=== PATIENT | male | born 1950 | race Caucasian/White ===

== ENCOUNTER 2023-02-15 09:00 | Inpatient (IN) | payer MEDICARE, BC ==
[~2023-02-15] VITALS: Ht 175.3 cm; Wt 102.5 kg
[2023-02-15 13:30] VITALS: BP 159/78
[2023-02-15] MEDS ORDERED: IBUPROFEN 400 MG TABLET PO PRN (14:00)
[2023-02-15] MEDS ORDERED: NICOTINE POLACRILEX 2 MG GUM CHEW PRN (14:00)
[2023-02-15] MEDS: PrednisoLONE ACETATE 1% 5 ML OPHTHALMIC SUSPENSION OS SCH ×2 (16:39→20:51)
[2023-02-15] MEDS ORDERED: PNEUMOCOCCAL VACCINE POLYVALENT 0.5 ML VIAL [PPSV23] IM. ONE (17:30)
[2023-02-15] MEDS: ATORVASTATIN CALCIUM 40 MG TABLET PO SCH (20:51)
[2023-02-15 21:00] VITALS: BP 143/71
[2023-02-16 06:28] LABS: BASOPHILS % (AUTO) 0.3 % (0.0-2.0); EOSINOPHILS % (AUTO) 2.3 % (1.0-6.0); HEMATOCRIT 42.8 % (41-53); HEMOGLOBIN 14.2 g/dL (13.5-17.5); LYMPHOCYTES # (AUTO) 2.1 K/uL (1.0-4.8); LYMPHOCYTES % (AUTO) 24.8 % (22.0-44.0); MEAN CORPUSCULAR HEMOGLOBIN 29.7 pg (26.0-34.0); MEAN CORPUSCULAR HGB CONC 33.1 G/dL (31.0-37.0); MEAN CORPUSCULAR VOLUME 90 fL (80-100); MONOCYTES # (AUTO) 0.7 K/uL (0.1-1.0); MONOCYTES % (AUTO) 8.3 % (2.0-9.0); NEUTROPHILS # (AUTO) 5.4 K/uL (1.8-7.7); NEUTROPHILS % (AUTO) 64.3 % (40.0-70.0); PLATELET COUNT (AUTO) 168 K/uL (150-450); RED BLOOD CELL COUNT(AUTO) 4.76 MIL/uL (4.50-5.90); RED CELL DISTRIBUTION WIDTH 13.5 % (11.5-14.5)
[2023-02-16 06:49] LABS: ANION GAP 4 mmol/L (8-16); CALCIUM, TOTAL 9.2 mg/dL (8.8-10.5); CARBON DIOXIDE 29 mmol/L (22-29); CHLORIDE 107 mmol/L (98-107); CREATININE 0.78 mg/dL (0.60-1.30); GLOMERULAR FILTR. RATE CALC > 60 mL/min (>60); GLUCOSE,RANDOM 90 mg/dL (70-110); POTASSIUM 4.6 mmol/L (3.5-5.1); SODIUM SERUM 140 mmol/L (136-145)
[2023-02-16 06:51] LABS: ALKALINE PHOSPHATASE 89 U/L (46-116); BILIRUBIN,TOTAL 0.4 mg/dL (0.1-1.0)
[2023-02-16 06:52] LABS: ALANINE AMINOTRANSFERASE 27 U/L (12-78); ALBUMIN 3.1 g/dL (3.4-5.0); ASPARTATE AMINOTRANSFERASE 19 U/L (15-37); TOTAL PROTEIN, SERUM 5.9 g/dL (6.4-8.2)
[2023-02-16 07:05] LABS: UREA NITROGEN, BLOOD 16 mg/dL (7-18)
[2023-02-16 08:15] VITALS: BP 159/74
[2023-02-16] MEDS: PrednisoLONE ACETATE 1% 5 ML OPHTHALMIC SUSPENSION OS SCH ×3 (08:18→22:03)
[2023-02-16] MEDS: ENOXAPARIN SODIUM 40 MG/0.4 ML PF SYRINGE SQ SCH (08:18)
[2023-02-16] MEDS: LOSARTAN POTASSIUM 50 MG TABLET PO SCH (08:18)
[2023-02-16] MEDS: ASPIRIN 81 MG CHEWABLE TABLET PO SCH (08:18)
[2023-02-16] MEDS: ETHYL ALCOHOL 62% ANTISEPTIC NASAL SANITIZER 0.6 ML AMPUL NASAL SCH ×2 (08:18→22:02)
[2023-02-16] MEDS: NICOTINE 21 MG/24 HOUR PATCH TD SCH (08:19)
[2023-02-16 21:00] VITALS: BP 161/79
[2023-02-16] MEDS: ATORVASTATIN CALCIUM 40 MG TABLET PO SCH (22:03)
[2023-02-17 08:10] VITALS: BP 162/80
[2023-02-17] MEDS: ETHYL ALCOHOL 62% ANTISEPTIC NASAL SANITIZER 0.6 ML AMPUL NASAL SCH ×2 (08:26→20:49)
[2023-02-17] MEDS: PrednisoLONE ACETATE 1% 5 ML OPHTHALMIC SUSPENSION OS SCH ×3 (08:27→20:50)
[2023-02-17] MEDS: ENOXAPARIN SODIUM 40 MG/0.4 ML PF SYRINGE SQ SCH (08:28)
[2023-02-17] MEDS: LOSARTAN POTASSIUM 50 MG TABLET PO SCH (08:28)
[2023-02-17] MEDS: ASPIRIN 81 MG CHEWABLE TABLET PO SCH (08:28)
[2023-02-17] MEDS: NICOTINE 21 MG/24 HOUR PATCH TD SCH (08:29)
[2023-02-17] MEDS ORDERED: PNEUMOCOCCAL VACCINE POLYVALENT 0.5 ML VIAL [PPSV23] IM. ONE (09:45)
[2023-02-17] MEDS: SENNOSIDES 8.6 MG TABLET PO SCH (20:50)
[2023-02-17] MEDS: DOCUSATE SODIUM 100 MG CAPSULE PO SCH (20:50)
[2023-02-17] MEDS: MELATONIN 3 MG TABLET PO PRN (20:50)
[2023-02-17] MEDS: ATORVASTATIN CALCIUM 40 MG TABLET PO SCH (20:51)
[2023-02-17 21:00] VITALS: BP 146/81
[2023-02-18 08:01] VITALS: BP 159/78
[2023-02-18] MEDS: ENOXAPARIN SODIUM 40 MG/0.4 ML PF SYRINGE SQ SCH (08:09)
[2023-02-18] MEDS: LOSARTAN POTASSIUM 50 MG TABLET PO SCH (08:09)
[2023-02-18] MEDS: PrednisoLONE ACETATE 1% 5 ML OPHTHALMIC SUSPENSION OS SCH ×3 (08:09→21:25)
[2023-02-18] MEDS: DOCUSATE SODIUM 100 MG CAPSULE PO SCH ×2 (08:09→21:25)
[2023-02-18] MEDS: ASPIRIN 81 MG CHEWABLE TABLET PO SCH (08:09)
[2023-02-18] MEDS: NICOTINE 21 MG/24 HOUR PATCH TD SCH (08:10)
[2023-02-18] MEDS: ETHYL ALCOHOL 62% ANTISEPTIC NASAL SANITIZER 0.6 ML AMPUL NASAL SCH ×2 (08:10→21:25)
[2023-02-18 12:20] VITALS: BP 145/79
[2023-02-18] MEDS: METOPROLOL TARTRATE 25 MG TABLET PO SCH ×2 (12:39→21:26)
[2023-02-18] MEDS: ATORVASTATIN CALCIUM 40 MG TABLET PO SCH (21:25)
[2023-02-18] MEDS: SENNOSIDES 8.6 MG TABLET PO SCH (21:26)
[2023-02-18] MEDS: MELATONIN 3 MG TABLET PO PRN (21:28)
[2023-02-18 21:35] VITALS: BP 148/75
[2023-02-19] MEDS ORDERED: ATOR40TA28 PO (04:27)
[2023-02-19] MEDS ORDERED: METO25 PO (04:27)
[2023-02-19] MEDS ORDERED: PREDAOS OS (04:27)
[2023-02-19] MEDS ORDERED: DOCU-385 PO (04:27)
[2023-02-19] MEDS ORDERED: NICO-803 TD (04:27)
[2023-02-19] MEDS ORDERED: SENN-187 PO (04:27)
[2023-02-19] MEDS ORDERED: LOSA-382 PO (04:27)
[2023-02-19] MEDS ORDERED: ASPI-1450 PO (04:27)
[2023-02-19 07:45] VITALS: BP 152/66
[2023-02-19] MEDS: ENOXAPARIN SODIUM 40 MG/0.4 ML PF SYRINGE SQ SCH (07:48)
[2023-02-19] MEDS: NICOTINE 21 MG/24 HOUR PATCH TD SCH (07:48)
[2023-02-19] MEDS: ETHYL ALCOHOL 62% ANTISEPTIC NASAL SANITIZER 0.6 ML AMPUL NASAL SCH ×2 (07:48→20:26)
[2023-02-19] MEDS: METOPROLOL TARTRATE 25 MG TABLET PO SCH ×2 (07:49→20:20)
[2023-02-19] MEDS: ASPIRIN 81 MG CHEWABLE TABLET PO SCH (07:49)
[2023-02-19] MEDS: LOSARTAN POTASSIUM 50 MG TABLET PO SCH (07:49)
[2023-02-19] MEDS: DOCUSATE SODIUM 100 MG CAPSULE PO SCH ×2 (07:49→20:20)
[2023-02-19] MEDS: PrednisoLONE ACETATE 1% 5 ML OPHTHALMIC SUSPENSION OS SCH ×3 (07:49→20:20)
[2023-02-19 13:15] VITALS: BP 149/79
[2023-02-19 20:15] VITALS: BP 137/71
[2023-02-19] MEDS: ATORVASTATIN CALCIUM 40 MG TABLET PO SCH (20:20)
[2023-02-19] MEDS: MELATONIN 3 MG TABLET PO PRN (20:20)
[2023-02-19] MEDS: SENNOSIDES 8.6 MG TABLET PO SCH (20:21)
[2023-02-20 08:05] VITALS: BP 149/77
[2023-02-20] MEDS: ASPIRIN 81 MG CHEWABLE TABLET PO SCH (08:48)
[2023-02-20] MEDS: DOCUSATE SODIUM 100 MG CAPSULE PO SCH ×2 (08:48→20:42)
[2023-02-20] MEDS: ETHYL ALCOHOL 62% ANTISEPTIC NASAL SANITIZER 0.6 ML AMPUL NASAL SCH ×2 (08:48→20:42)
[2023-02-20] MEDS: PrednisoLONE ACETATE 1% 5 ML OPHTHALMIC SUSPENSION OS SCH ×3 (08:48→20:42)
[2023-02-20] MEDS: NICOTINE 21 MG/24 HOUR PATCH TD SCH (08:49)
[2023-02-20] MEDS: LOSARTAN POTASSIUM 50 MG TABLET PO SCH (08:49)
[2023-02-20] MEDS: METOPROLOL TARTRATE 25 MG TABLET PO SCH ×2 (08:49→20:45)
[2023-02-20] MEDS: ENOXAPARIN SODIUM 40 MG/0.4 ML PF SYRINGE SQ SCH (08:49)
[2023-02-20] MEDS: SENNOSIDES 8.6 MG TABLET PO SCH (20:43)
[2023-02-20] MEDS: ATORVASTATIN CALCIUM 40 MG TABLET PO SCH (20:43)
[2023-02-20 21:00] VITALS: BP 138/71
[2023-02-21 08:00] VITALS: BP 147/80
[2023-02-21] MEDS: ETHYL ALCOHOL 62% ANTISEPTIC NASAL SANITIZER 0.6 ML AMPUL NASAL SCH ×2 (09:10→21:04)
[2023-02-21] MEDS: PrednisoLONE ACETATE 1% 5 ML OPHTHALMIC SUSPENSION OS SCH ×3 (09:11→21:05)
[2023-02-21] MEDS: METOPROLOL TARTRATE 25 MG TABLET PO SCH ×2 (09:12→21:06)
[2023-02-21] MEDS: DOCUSATE SODIUM 100 MG CAPSULE PO SCH ×2 (09:12→21:06)
[2023-02-21] MEDS: ASPIRIN 81 MG CHEWABLE TABLET PO SCH (09:12)
[2023-02-21] MEDS: ENOXAPARIN SODIUM 40 MG/0.4 ML PF SYRINGE SQ SCH (09:12)
[2023-02-21] MEDS: NICOTINE 21 MG/24 HOUR PATCH TD SCH (09:13)
[2023-02-21] MEDS: LOSARTAN POTASSIUM 50 MG TABLET PO SCH (09:22)
[2023-02-21 20:57] VITALS: BP 133/70
[2023-02-21] MEDS: ATORVASTATIN CALCIUM 40 MG TABLET PO SCH (21:06)
[2023-02-21] MEDS: SENNOSIDES 8.6 MG TABLET PO SCH (21:06)
[2023-02-22 09:17] VITALS: BP 151/75
[2023-02-22] MEDS: METOPROLOL TARTRATE 25 MG TABLET PO SCH ×2 (10:00→20:11)
[2023-02-22] MEDS: ENOXAPARIN SODIUM 40 MG/0.4 ML PF SYRINGE SQ SCH (10:00)
[2023-02-22] MEDS: ASPIRIN 81 MG CHEWABLE TABLET PO SCH (10:00)
[2023-02-22] MEDS: LOSARTAN POTASSIUM 50 MG TABLET PO SCH (10:00)
[2023-02-22] MEDS: DOCUSATE SODIUM 100 MG CAPSULE PO SCH ×2 (10:00→20:11)
[2023-02-22] MEDS: PrednisoLONE ACETATE 1% 5 ML OPHTHALMIC SUSPENSION OS SCH ×3 (10:01→20:11)
[2023-02-22] MEDS: ETHYL ALCOHOL 62% ANTISEPTIC NASAL SANITIZER 0.6 ML AMPUL NASAL SCH ×2 (10:01→20:11)
[2023-02-22] MEDS: NICOTINE 21 MG/24 HOUR PATCH TD SCH (10:07)
[2023-02-22 20:09] VITALS: BP 149/79
[2023-02-22] MEDS: SENNOSIDES 8.6 MG TABLET PO SCH (20:11)
[2023-02-22] MEDS: ATORVASTATIN CALCIUM 40 MG TABLET PO SCH (20:11)
[2023-02-22] MEDS ORDERED: ALLO-97 PO (22:02)
[2023-02-23 08:20] VITALS: BP 155/82
[2023-02-23] MEDS: DOCUSATE SODIUM 100 MG CAPSULE PO SCH (10:19)
[2023-02-23] MEDS: ETHYL ALCOHOL 62% ANTISEPTIC NASAL SANITIZER 0.6 ML AMPUL NASAL SCH (10:19)
[2023-02-23] MEDS: PrednisoLONE ACETATE 1% 5 ML OPHTHALMIC SUSPENSION OS SCH (10:19)
[2023-02-23] MEDS: LOSARTAN POTASSIUM 50 MG TABLET PO SCH (10:20)
[2023-02-23] MEDS: ASPIRIN 81 MG CHEWABLE TABLET PO SCH (10:20)
[2023-02-23] MEDS: ENOXAPARIN SODIUM 40 MG/0.4 ML PF SYRINGE SQ SCH (10:20)
[2023-02-23] MEDS: METOPROLOL TARTRATE 25 MG TABLET PO SCH (10:20)
[2023-02-23] MEDS: NICOTINE 21 MG/24 HOUR PATCH TD SCH (10:21)
[2023-02-23] MEDS ORDERED: METO50 PO (16:02)
[2023-02-23] MEDS ORDERED: METOPROLOL TARTRATE 50 MG TABLET PO SCH (21:00)
== END 2023-02-23 16:30 | disposition home or self-care (01) | DRG 65 ==
LOC: 2WR 12:51
PROVIDERS: ADMIT Physical Medicine & Rehabilitation; ATTEND Nurse Practitioner Family
DX: I63.9 Cerebral infarction, unspecified (principal); E46 Unspecified protein-calorie malnutrition; G81.94 Hemiplegia, unspecified affecting left nondominant side; I48.91 Unspecified atrial fibrillation; I10 Essential (primary) hypertension; Z68.33 Body mass index [BMI] 33.0-33.9, adult; R26.0 Ataxic gait; G47.00 Insomnia, unspecified; F17.210 Nicotine dependence, cigarettes, uncomplicated; E78.5 Hyperlipidemia, unspecified; Z79.82 Long term (current) use of aspirin
CPT/HCPCS: 80053; 85025; 87081; 90732; 92507; 92523; 92526; 92610; 93005; 97110; 97112; 97116; 97150; 97162; 97166; 97530; 97535; 99366; J1650